=== PATIENT | male | born 1980 | race African-American/Black ===

== ENCOUNTER 2022-01-06 10:20 | Inpatient (IN) ==
[2022-01-06] MEDS ORDERED: FUROSEMIDE 40 MG/4 ML VIAL IV STA (11:04)
[2022-01-06 11:25] LABS: Basophils % 0.6 % (0.0-0.8); Eosinophils % 0.4 % (0.00-10.9); Hematocrit 46.5 VOL% (42.0-52.0); Hemoglobin 14.8 GM/DL (14.0-18.0); Immature Granulocytes % 0.4 %; Immature Granulocytes Absolute 0.02 #; Lymphocytes # 1.5 10*3/uL (1.4-4.0); Lymphocytes % 30.2 % (21.2-54.2); Mean Corpuscular HGB Conc 31.8 GM/DL (32-36); Mean Corpuscular Volume 94.9 FL (87-102); Mean Platelet Volume 11.4 FL (9.6-12.0); Monocytes # 0.4 10*3/uL (0.11-0.8); Monocytes % 7.1 % (1.7-12.7); Neutrophils % 61.3 % (38.7-73.9); Platelet Count 242 T/CUMM (130-400); Red Cell Distribution Width 13.8 % (9.3-17.3); White Blood Count 5.1 T/CUMM (4-12)
[2022-01-06 11:41] LABS: Albumin 3.4 G/DL (3.4-5.0); Bilirubin,Total 3.1 MG/DL (0.20-1.00); Calcium 9.4 MG/DL (8.5-10.1); Osmolality,Calculated 275.8 MOS/KG (273-304); Potassium 4.2 MMOL/L (3.5-5.1); Total Protein 6.3 G/DL (6.4-8.2)
[2022-01-06] MEDS ORDERED: METOPROLOL TARTRATE 5 MG/5 ML VIAL IV STA (12:51)
[2022-01-06] MEDS: SPIRONOLACTONE 25 MG TABLET PO SCH (13:08)
[2022-01-06] MEDS ORDERED: cefTRIAXone 1,000 MG VIAL IM STA (13:11)
[2022-01-06] MEDS ORDERED: DOXYCYCLINE HYCLATE INJ 100 MG in SODIUM CHLORIDE 0.9% 100 ML IV STA (13:11)
[2022-01-06] MEDS ORDERED: ACETAMINOPHEN 325 MG TABLET PO PRN (13:24)
[2022-01-06] MEDS ORDERED: ALBUTEROL 2.5 MG/3 ML NEB RESP TX PRN (13:24)
[2022-01-06] MEDS ORDERED: GLUCAGON 1 MG VIAL IM PRN (13:24)
[2022-01-06] MEDS ORDERED: ONDANSETRON 4 MG/2 ML VIAL IV PRN (13:24)
[2022-01-06] MEDS ORDERED: DOCUSATE SODIUM 100 MG CAPSULE PO PRN (13:24)
[2022-01-06] MEDS ORDERED: METOPROLOL TARTRATE 5 MG/5 ML VIAL IV ONE (13:30)
[2022-01-06] MEDS ORDERED: DEXTROSE 10% 250 ML BAG IV PRN (13:31)
[2022-01-06] MEDS ORDERED: diphenhydrAMINE CAP 25 MG CAPSULE PO PRN (13:51)
[2022-01-06] MEDS ORDERED: ALPRAZolam 0.25 MG TABLET PO PRN (13:52)
[2022-01-06] MEDS: ASPIRIN EC 81 MG TABLET PO SCH (15:57)
[2022-01-06] MEDS: FUROSEMIDE 40 MG/4 ML VIAL IV SCH (15:57)
[2022-01-06] MEDS: ENOXAPARIN 40 MG/0.4 ML SYRINGE SUBCUT SCH (15:57)
[2022-01-06] MEDS: INSULIN LISPRO 100 UNIT/ML SUBCUT SCH ×2 (16:02→22:06)
[2022-01-06] MEDS: SACUBITRIL/VALSARTAN 49-51 MG TABLET PO SCH (22:05)
[2022-01-06] MEDS: METOPROLOL SUCCINATE XL 50 MG TABLET PO SCH (22:07)
[2022-01-07] MEDS: DOXYCYCLINE HYCLATE INJ 100 MG in SODIUM CHLORIDE 0.9% 100 ML IV SCH ×2 (02:32→13:17)
[2022-01-07 05:10] LABS: Basophils # 0.1 10*3/uL (0.0-0.2); Basophils % 1.1 % (0.0-0.8); Eosinophils % 0.4 % (0.00-10.9); Hematocrit 44.5 VOL% (42.0-52.0); Hemoglobin 14.1 GM/DL (14.0-18.0); Immature Granulocytes % 0.4 %; Immature Granulocytes Absolute 0.02 #; Lymphocytes # 1.9 10*3/uL (1.4-4.0); Lymphocytes % 40.3 % (21.2-54.2); Mean Corpuscular HGB Conc 31.7 GM/DL (32-36); Mean Corpuscular Volume 94.3 FL (87-102); Mean Platelet Volume 11.7 FL (9.6-12.0); Monocytes # 0.4 10*3/uL (0.11-0.8); Monocytes % 8.9 % (1.7-12.7); Neutrophils % 48.9 % (38.7-73.9); Platelet Count 219 T/CUMM (130-400); Red Blood Count 4.72 MC/CUMM (3.8-5.5); Red Cell Distribution Width 13.7 % (9.3-17.3); White Blood Count 4.7 T/CUMM (4-12)
[2022-01-07 05:35] LABS: Calcium 8.9 MG/DL (8.5-10.1); Osmolality,Calculated 276.7 MOS/KG (273-304)
[2022-01-07] MEDS: INSULIN LISPRO 100 UNIT/ML SUBCUT SCH ×4 (08:12→21:53)
[2022-01-07] MEDS: SPIRONOLACTONE 25 MG TABLET PO SCH (08:58)
[2022-01-07] MEDS: ASPIRIN EC 81 MG TABLET PO SCH (08:58)
[2022-01-07] MEDS: SACUBITRIL/VALSARTAN 49-51 MG TABLET PO SCH ×2 (08:59→21:52)
[2022-01-07] MEDS: FUROSEMIDE 40 MG/4 ML VIAL IV SCH ×2 (08:59→16:16)
[2022-01-07] MEDS: PANTOPRAZOLE 40 MG TABLET PO SCH (08:59)
[2022-01-07 09:26] LABS: Barbiturates Screen,Urine Negative (Negative); Benzodiazepines Screen,Urine Negative (Negative); Cannabinoid Screen,Urine Positive (Negative); Opiate Screen,Urine Negative (Negative); Phencyclidine Screen,Urine Negative (Negative)
[2022-01-07] MEDS: ENOXAPARIN 40 MG/0.4 ML SYRINGE SUBCUT SCH (12:45)
[2022-01-07] MEDS ORDERED: cefTRIAXone 1,000 MG in SODIUM CHLORIDE 0.9% 100 ML IV SCH (13:00)
[2022-01-07] MEDS ORDERED: FUROSEMIDE 40 MG TABLET PO SCH (16:00)
[2022-01-07] MEDS: METOPROLOL SUCCINATE XL 50 MG TABLET PO SCH (21:53)
[2022-01-08] MEDS: DOXYCYCLINE HYCLATE INJ 100 MG in SODIUM CHLORIDE 0.9% 100 ML IV SCH (02:14)
[2022-01-08 05:31] LABS: Basophils % 0.6 % (0.0-0.8); Eosinophils % 0.6 % (0.00-10.9); Hematocrit 47.4 VOL% (42.0-52.0); Hemoglobin 15.3 GM/DL (14.0-18.0); Lymphocytes # 2.4 10*3/uL (1.4-4.0); Lymphocytes % 48.7 % (21.2-54.2); Mean Corpuscular HGB Conc 32.3 GM/DL (32-36); Mean Corpuscular Volume 93.3 FL (87-102); Mean Platelet Volume 11.8 FL (9.6-12.0); Monocytes # 0.4 10*3/uL (0.11-0.8); Monocytes % 7.6 % (1.7-12.7); Neutrophils % 42.5 % (38.7-73.9); Platelet Count 222 T/CUMM (130-400); Red Blood Count 5.08 MC/CUMM (3.8-5.5); Red Cell Distribution Width 13.7 % (9.3-17.3); White Blood Count 4.9 T/CUMM (4-12)
[2022-01-08 05:49] LABS: Calcium 8.5 MG/DL (8.5-10.1); Osmolality,Calculated 279.5 MOS/KG (273-304); Potassium 3.8 MMOL/L (3.5-5.1)
[2022-01-08] MEDS: INSULIN LISPRO 100 UNIT/ML SUBCUT SCH ×2 (08:41→11:32)
[2022-01-08] MEDS ORDERED: FUROSEMIDE 40 MG TABLET PO SCH ×2 (09:00)
[2022-01-08] MEDS: SACUBITRIL/VALSARTAN 49-51 MG TABLET PO SCH (09:08)
[2022-01-08] MEDS: PANTOPRAZOLE 40 MG TABLET PO SCH (09:08)
[2022-01-08] MEDS: ASPIRIN EC 81 MG TABLET PO SCH (09:08)
[2022-01-08] MEDS: SPIRONOLACTONE 25 MG TABLET PO SCH (09:08)
[2022-01-08 12:31] VITALS: BP 115/84
[2022-01-08] MEDS ORDERED: DOXYCYCLINE HYCLATE 100 MG CAPSULE PO SCH (21:00)
== END 2022-01-08 14:05 | disposition home or self-care (01) | DRG 280 ==
LOC: N.ED 10:20 → SUATTDRO 13:24 → N.EDINP 13:24 → N.TELES 14:19
PROVIDERS: ADMIT Internal Medicine; ATTEND Internal Medicine